=== PATIENT | male | born 1930 | race Two or more races ===

== ENCOUNTER 2017-08-20 13:29 | Day surgery (SDC) | payer MEDICARE ==
--- NOTE | 2017-08-17 10:41 | HP ---
CC: Dr. Blum at [facility] * ADMISSION HISTORY AND PHYSICAL: DATE OF ADMISSION: 08/20/17 ADMISSION DIAGNOSES: 1. Gross hematuria. 2. Bladder tumors. PLANNED PROCEDURE: Cystoscopy, transurethral resection of bladder tumor. SURGEON: Dr. Temple. HISTORY OF PRESENT ILLNESS: Boogie Arora is an 87-year-old gentleman whose past urologic history is significant for prostate cancer diagnosed about 8 to 9 years ago while he was in [place]. This was treated with an approximately 2- year course of Lupron injections and has not required any treatment in the last 5-6 years. His most recent serum PSA in July 2017 was 0.11. In December 2016, he had an episode of gross hematuria, which then recurred several weeks ago. He is not on any anticoagulants and did not have any flank pain or dysuria associated with this. 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 He is now being brought in for transurethral resection of these bladder lesions. PAST MEDICAL HISTORY: Significant for prostate cancer. PAST SURGICAL HISTORY: Negative. MEDICATIONS: On admission, none. ALLERGIES: No known drug allergies. SOCIAL HISTORY: He is a nonsmoker. REVIEW OF SYSTEMS: He is in exceptionally good health. There is no history of diabetes mellitus or any other major systemic illness. He is fairly active physically and looks about 15 years younger than his chronological age. PHYSICAL EXAMINATION GENERAL: Reveals a pleasant healthy-appearing gentleman. VITAL SIGNS: Blood pressure is 126/82, pulse 60 per minute regular, oxygen saturation 96% on room air. LUNGS: Clear bilaterally. CARDIOVASCULAR EXAM: Regular rate and rhythm, S1, S2. ABDOMEN: Soft without masses. IMPRESSION: An 87-year-old gentleman with episodes of gross hematuria and what appeared to be bladder tumor at the anterior bladder neck with some areas of active bleeding. PLAN/RECOMMENDATIONS: Cystoscopy and transurethral resection of bladder tumor. [id number]/[facility] #: [id number] [facility]
[~2017-08-20 13:29] MED LIST: Buffered Lidocaine 0.9% SYRIN* 5 ML/SYR SYRINGE INTRADERM ONE; Sodium Citrate/Citric Acid* 15 ML UDC PO ONE
[2017-08-20] MEDS ORDERED: cefTRIAXone(*) 2 GM ADDV.VIAL IVPB ONE (13:45)
[2017-08-20] MEDS ORDERED: Sodium Citrate/Citric Acid* 15 ML UDC ONE (13:45)
[2017-08-20] MEDS ORDERED: Buffered Lidocaine 0.9% SYRIN* 5 ML/SYR SYRINGE ONE (13:46)
[2017-08-20] MEDS ORDERED: Lidocaine 2% PF * 5 ML VIAL ONE (16:20)
[2017-08-20] MEDS ORDERED: Propofol* 10 MG/ML 20 ML BTL IV PUSH ONE (16:20)
[2017-08-20] MEDS ORDERED: fentaNYL* 50 MCG/ML 2 ML VIAL (100 MCG VIAL) ONE (16:41)
[2017-08-20] MEDS ORDERED: Furosemide IV* 10 MG/ML 2 ML VIAL (20 MG) ONE (17:06)
[2017-08-20] MEDS ORDERED: fentaNYL* 50 MCG/ML 2 ML VIAL (100 MCG VIAL) IV PRN (17:26)
[2017-08-20] MEDS ORDERED: Ondansetron INJ* 2 MG/ML VIAL IV PRN (17:26)
[2017-08-20] MEDS ORDERED: Naloxone* 0.4 MG/ML 1 ML VIAL IV PRN (17:26)
[2017-08-20] MEDS ORDERED: Lidocaine 2% JELLY* 6 ML JELLY TOPICAL ONE (18:09)
[2017-08-20] MEDS ORDERED: hydrALAZINE IV* 20 MG/ML VIAL ONE (18:58)
[2017-08-20] MEDS ORDERED: Labetalol IV* 5 MG/ML 20 ML VIAL ONE (19:28)
[2017-08-20 20:44] VITALS: BP 144/81
--- NOTE | 2017-08-21 11:07 | OP ---
CC: Dr. Blum at [facility] * DATE OF OPERATION: 08/20/17 - SDS DATE OF : [birth year] - Age: 87 years, male. SURGEON: Navdeep Temple MD. ANESTHESIOLOGIST: Dr. Sales. ANESTHESIA: General. PRE-OPERATIVE DIAGNOSES: 1. Gross hematuria. 2. Bladder tumor. POST-OPERATIVE DIAGNOSES: OPERATIVE PROCEDURES: Cystoscopy, transurethral resection and fulguration of bladder tumor (6 to 7 cm). COMPLICATIONS: None. ESTIMATED BLOOD LOSS: Less than 50 cc. OPERATIVE FINDINGS: Multiple tumors, anterior bladder neck, close to prostatic urethra (possible bladder versus prostatic origin), with active bleeding noted from some of the tumors. POSTOPERATIVE CONDITION: Stable. INDICATIONS: Boogie Arora is an 87-year-old gentleman who was evaluated for gross hematuria. He was noted to have the above described tumors, which are located in the anterior bladder neck and some of them are actively bleeding. 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 DESCRIPTION OF PROCEDURE: After induction of general anesthesia, the patient was placed in dorsal lithotomy position. Sequential compression devices were in place and functioning. Initial cystoscopy revealed normally located right and left ureteral orifices, with clear efflux noted. The bladder was carefully examined. There were few small diverticuli noted in the bladder. There were no tumors noted in the usual area where tumors would be expected, in the trigone or in the lateral castillo. In the anterior bladder neck area, there were multiple tumors noted, some of which appeared to be superficial transitional cell tumors, but some had a more solid appearance. Using the resectoscope the visible tumors were carefully resected; the area was quite vascular and the cautery was used to achieve hemostasis. Once the tumors had been satisfactorily resected, the resected tissue was removed from the bladder using the Velostack evacuator and sent for histopathology. At the end of the procedure hemostasis appeared satisfactory. A 24-Indonesian Tripathi was introduced without difficulty. The patient tolerated the procedure satisfactorily and was transferred back to the recovery area in stable condition. Depending on the histopathology report, the patient may require a second look procedure in a 3 to 4-week period. [id number]/[facility] #: [id number] [facility]
== END 2017-08-20 20:44 | disposition home or self-care (01) ==
LOC: OR 13:29
PROVIDERS: ATTEND Urology
DX: C67.5 Malignant neoplasm of bladder neck (principal); R31.0 Gross hematuria; Z85.46 Personal history of malignant neoplasm of prostate
CPT/HCPCS: 88305; A9270-GY; J0360; J0696; J1940; J2704; J3010

== ENCOUNTER 2017-12-07 08:09 | Day surgery (SDC) | payer MEDICARE ==
--- NOTE | 2017-12-04 04:07 | HP ---
CC: Dr. Chris Blum, [facility]; Dr. Temple * ADMITTING HISTORY AND PHYSICAL: DATE OF ADMISSION: 12/07/17 ADMITTING DIAGNOSES: 1. Gross hematuria. 2. Bladder cancer. PLANNED PROCEDURE: Cystoscopy, transurethral resection of recurrent bladder cancer. SURGEON: Dr. Temple. HISTORY OF PRESENT ILLNESS: Mr. Arora is an 87-year-old gentleman, who has undergone transurethral resection of bladder tumor for gross hematuria in July of 2017. Pathology had revealed high-grade invasive bladder cancer and he was not interested in pursuing chemotherapy or cystectomy. Recent cystoscopy in my office revealed recurrent bladder tumor in the anterior bladder wall with some areas of bleeding noted and he is now being brought in for management of the same. His past urologic history is significant for prostate cancer, which was treated initially with androgen deprivation therapy in the form of Lupron, which he has not required for several years. PAST MEDICAL HISTORY: Significant for: 1. Bladder cancer. 2. Prostate cancer. MEDICATIONS ON ADMISSION: None. ALLERGIES: No known drug allergies. SOCIAL HISTORY: Smoking history, he is a nonsmoker. REVIEW OF SYSTEMS: He is otherwise in very good health and is extremely physically active and denies any chest pain or shortness of breath. There is no history of any other major systemic illness. PHYSICAL EXAMINATION GENERAL: Reveals a pleasant healthy-appearing gentleman, who looks younger than his stated age. VITAL SIGNS: Blood pressure is 124/74; pulse 60 per minute, regular; oxygen saturation 97% on room air. LUNGS: Clear bilaterally. CARDIOVASCULAR: Regular rate and rhythm. S1, S2. ABDOMEN: Soft without masses. IMPRESSION: An 87-year-old gentleman with recurrent bladder cancer. PLAN: Planned procedure is cystoscopy, transurethral resection of bladder tumor. [id number]/[facility] #: [id number] [facility]
[~2017-12-07 08:09] MED LIST changes: +Dexamethasone IV* 4 MG/ML 1 ML (4 MG) IV SLOW PU ONE; +Famotidine IV* 10 MG/ML 2 ML (20 mg) IV ONE; -Sodium Citrate/Citric Acid* 15 ML UDC PO ONE
[2017-12-07] MEDS ORDERED: Famotidine IV* 10 MG/ML 2 ML (20 mg) ONE (08:51)
[2017-12-07] MEDS ORDERED: cefTRIAXone(*) 2 GM ADDV.VIAL IVPB ONE (08:51)
[2017-12-07] MEDS ORDERED: Dexamethasone IV* 4 MG/ML 1 ML (4 MG) ONE (08:51)
[2017-12-07] MEDS ORDERED: fentaNYL* 50 MCG/ML 2 ML VIAL (100 MCG VIAL) ONE (09:55)
[2017-12-07] MEDS ORDERED: Ondansetron INJ* 2 MG/ML VIAL ONE (09:56)
[2017-12-07] MEDS ORDERED: Propofol* 10 MG/ML 20 ML BTL IV PUSH ONE (09:56)
[2017-12-07] MEDS ORDERED: Lidocaine 2% PF * 5 ML VIAL ONE (09:56)
[2017-12-07] MEDS ORDERED: Furosemide IV* 10 MG/ML 2 ML VIAL (20 MG) ONE (10:24)
[2017-12-07] MEDS ORDERED: Naloxone* 0.4 MG/ML 1 ML VIAL IV PRN (11:12)
[2017-12-07] MEDS ORDERED: fentaNYL* 50 MCG/ML 2 ML VIAL (100 MCG VIAL) IV PRN (11:12)
[2017-12-07] MEDS ORDERED: Lidocaine 2% JELLY* 6 ML JELLY TOPICAL ONE (11:41)
[2017-12-07 11:51] VITALS: BP 149/88
--- NOTE | 2017-12-07 21:33 | OP ---
CC: Dr. Chris Blum * DATE OF OPERATION: 12/07/17 - [facility] DATE OF : [birth year] SURGEON: Navdeep Temple MD. ANESTHESIOLOGIST: Dr. Mcmanus. ANESTHESIA: General. PRE-OP DIAGNOSES: 1. Hematuria. 2. Bladder cancer. POST-OP DIAGNOSES: 1. Hematuria. 2. Bladder cancer. 3. Urethral and bladder neck stricture. OPERATIVE PROCEDURE: 1. Cystoscopy, transurethral resection and fulguration of bladder tumor (5 to 6 cm). 2. Transurethral incision of bladder neck. COMPLICATIONS: None. BLOOD LOSS: 50 cc. OPERATIVE FINDINGS: 1. Stricture of penile and bulbar urethra and stricture of the bladder neck. 2. Recurrent solid tumor anterior bladder neck (questionable primary bladder tumor versus related to prostate cancer). INDICATIONS: Boogie Arora is an 87-year-old gentleman, who had previously undergone transurethral resection of a bladder tumor several months ago. Pathology at that time had revealed invasive transitional cell carcinoma. He was recently reevaluated and noted to have recurrent tumor of the anterior bladder neck. DESCRIPTION OF PROCEDURE: After induction of general anesthesia, the patient was placed in dorsal lithotomy position. Sequential compression devices were in place and functioning. Initial cystoscopy revealed multiple strictures in the penile and bulbar urethra. These were carefully dilated. The bladder was examined. The right and left ureteral orifices were normal in position and configuration. There was recurrent tumor, which appeared solid noted at the anterior bladder neck extending from the 9 o'clock to the 3 o'clock position. Using the resectoscope, all of the visible tumor was carefully resected and sent for histopathology. It is possible that this may be a recurrence of bladder tumor, but because of the proximity to the prostate, the other possibility this may be related to his past history of prostate cancer. Next, using the Garcia knife, bladder neck incision was carried out of the 5 and 7 o'clock position. Once this was done, a 22-Khmer Tripathi was introduced without difficulty and connected to a drainage bag. The patient tolerated the procedure satisfactorily and was transferred back to recovery area in stable condition. [id number]/[facility] #: [id number] [facility]
== END 2017-12-07 12:00 | disposition home or self-care (01) ==
LOC: OR 08:09
PROVIDERS: ATTEND Urology
DX: C67.3 Malignant neoplasm of anterior wall of bladder (principal); R31.0 Gross hematuria; Z87.891 Personal history of nicotine dependence; Z85.46 Personal history of malignant neoplasm of prostate; N32.0 Bladder-neck obstruction
CPT/HCPCS: J0696; J1100; J1940; J2405; J2704; J3010

== ENCOUNTER 2018-09-02 06:50 | Day surgery (SDC) | payer MEDICARE ==
--- NOTE | 2018-08-23 22:06 | HP ---
CC: Dr. Blum, [facility] ADMITTING HISTORY AND PHYSICAL: DATE OF ADMISSION: 09/02/18 ADMITTING DIAGNOSES: 1. Urethral stricture. 2. History of prostate cancer and solid lesion bladder neck - prostate. 3. Hematuria. PLANNED PROCEDURES: Internal urethrotomy, cystoscopy, transurethral resection of bladder - prostate lesion. SURGEON: Dr. Temple. HISTORY OF PRESENT ILLNESS: Boogie Arora is an 88-year-old gentleman who had originally been evalua keyur about a year ago for gross hematuria and has undergone resection of what was initially described as invasive bladder cancer. He had then had a recurrent lesion in the bladder neck anteriorly and th is time the pathology was suggestive of a tumor of prostatic origin. His PSA continues to be almost undetectable and a bone scan had been obtained last year, which was also unremarkable. He was recent ly again was evaluated for difficulty voiding and was noted to have extensive strictures, which requi red urethral dilation in the office placement of a Tripathi catheter and he is now being brought in for further evaluation and management of possible recurrent lesion. PAST MEDICAL HISTORY: Significant for prostate cancer, for which he is currently not on any kind of therapy. MEDICATIONS ON ADMISSION: None. ALLERGIES: No known allergies. FAMILY HISTORY: Negative for prostate cancer. SOCIAL HISTORY: Smoking History: He is a nonsmoker. REVIEW OF SYSTEMS: He is in excellent health, he appears much younger than his chronological age and is very active physically. He denies any chest pain or shortness of breath. He has no history of d iabetes mellitus or any other major systemic illness. PHYSICAL EXAMINATION VITAL SIGNS: Blood pressure is 120/80, pulse 69 per minute, temperature 96.8, oxygen saturation 99% on room air. LUNGS: Clear bilaterally. CARDIOVASCULAR: Regular rate and rhythm. S1, S2. ABDOMEN: Soft without masses. A Tripathi catheter is in place draining clear urine. IMPRESSION: An 88-year-old gentleman with a history of recurrent lesion at the level of the bladder neck, which are likely of prostatic origin and in addition he has multiple strictures. PLAN: Planned procedure is internal urethrotomy, cystoscopy, transurethral resection of bladder - pr ostate lesion. [id number]/[facility] #: [id number]
[~2018-09-02 06:50] MED LIST changes: -Buffered Lidocaine 0.9% SYRIN* 5 ML/SYR SYRINGE INTRADERM ONE; +Buffered Lidocaine 1% SYRIN* 1 ML/SYRINGE INTRADERM ONE; -Dexamethasone IV* 4 MG/ML 1 ML (4 MG) IV SLOW PU ONE; -Famotidine IV* 10 MG/ML 2 ML (20 mg) IV ONE; +Lactated Ringers 1000 ML Bag* 1,000 ML IV SCH; +cefTRIAXone(*) 2 GM ADDV.VIAL IVPB ONE
[2018-09-02] MEDS ORDERED: Famotidine IV* 10 MG/ML 2 ML (20 mg) ONE (07:25)
[2018-09-02] MEDS ORDERED: fentaNYL* 50 MCG/ML 2 ML VIAL (100 MCG VIAL) ONE (08:02)
[2018-09-02] MEDS ORDERED: Midazolam* 1 MG/ML 2 ML VIAL (2 MG) ONE (08:02)
[2018-09-02] MEDS ORDERED: Lidocaine 2% PF * 5 ML VIAL ONE (08:49)
[2018-09-02] MEDS ORDERED: Propofol* 10 MG/ML 20 ML BTL ONE (08:52)
[2018-09-02] MEDS ORDERED: Ondansetron INJ* 2 MG/ML VIAL IV PRN (09:10)
[2018-09-02] MEDS ORDERED: PROCHLORPERAZINE INJ 5 MG/ML 2 ML VIAL IV PRN (09:10)
[2018-09-02] MEDS ORDERED: Acetaminophen TAB* 325 MG PO PRN (09:10)
[2018-09-02] MEDS ORDERED: HYDROcodone/ACETAMIN 5-325 MG* 1 TAB PO PRN (09:10)
[2018-09-02] MEDS ORDERED: fentaNYL* 50 MCG/ML 2 ML VIAL (100 MCG VIAL) IV PRN (09:10)
[2018-09-02] MEDS ORDERED: Naloxone* 0.4 MG/ML 1 ML VIAL IV PRN (09:10)
[2018-09-02] MEDS ORDERED: diPHENhydraMINE IV* 50 MG/ML 1 ml VIAL (BENADRYL) IV PRN (09:10)
[2018-09-02] MEDS ORDERED: DiMENhydriNATE IV* 50 MG/ML VIAL IV PUSH PRN (09:10)
[2018-09-02] MEDS ORDERED: EPHEDrine (Pressors)* 50 MG/ML VIAL ONE (09:12)
[2018-09-02] MEDS ORDERED: Furosemide IV* 10 MG/ML 2 ML VIAL (20 MG) ONE (09:28)
[2018-09-02] MEDS ORDERED: Lidocaine 2% JELLY* 6 ML JELLY TOPICAL ONE (10:42)
[2018-09-02 10:55] VITALS: BP 157/80
--- NOTE | 2018-09-02 12:50 | OP ---
CC: Dr. Chris Blum * DATE OF OPERATION: 09/02/18 - [facility] DATE OF : [birth year] SURGEON: Navdeep Temple MD ANESTHESIOLOGIST: Dr. Bassett. ANESTHESIA: General. PRE-OP DIAGNOSES: 1. Hematuria. 2. Urethral strictures. 3. Prostate cancer. POST-OP DIAGNOSES: 1. Hematuria. 2. Urethral strictures. 3. Prostate cancer. OPERATIVE PROCEDURE: 1. Internal urethrotomy. 2. Transurethral resection and fulguration of prostate lesion. 3. Transurethral incision of bladder neck. COMPLICATIONS: None. BLOOD LOSS: Less than 50 cc. CATHETER: 24-Syrian Tripathi. INDICATIONS: Boogie Arora is an 88-year-old gentleman who has had recurrent episodes of hematuria secondary to recurrent solid tumor at the junction of the anterior bladder neck and prostatic urethra. His PSA remains very low, so there is no indication for systemic therapy at the present time. OPERATIVE FINDINGS: 1. Strictures, penile and bulbar urethra and mild stricture at bladder neck. 2. Solid tumor, junction of anterior bladder neck and prostate (likely prostatic origin). POSTOPERATIVE CONDITION: Stable. DESCRIPTION OF PROCEDURE: After induction of general anesthesia, the patient was placed in dorsal lithotomy position. The patent had an indwelling Tripathi catheter, which had been removed prior to positioning and because of that the urethra was still fairly dilated. Using the urethral sounds, the distal urethra was carefully dilated to 30 Syrian. Next, using the internal urethrotome, the narrowing in the bulbar urethra was addressed with internal urethrotomy. The urethrotome was advanced further. There was still further narrowing at the bladder neck and using a resectoscope with a right-angled knife electrode, transurethral incision of the bladder neck was carried out using the 5, 7, and 12 o'clock positions. Next, the resectoscope was introduced into the bladder. The bladder had been previously entirely visualized with the cystoscope and there was no evidence of any lesions resembling bladder tumors. At the junction of the anterior bladder neck and prostate, there was recurrent solid tumor with a small area of bleeding. Using the resectoscope, all of the visible tumor from the site was carefully resected and then the base was carefully fulgurated with the coagulating loop. At the end of the procedure, there was no remaining visible solid tumor there and hemostasis appeared satisfactory. A 24-Syrian Tripathi was introduced without difficulty and connected to a drainage bag. The patient tolerated the procedure satisfactorily and was transferred back to the recovery area in stable condition. [id number]/[facility] #: [id number] [facility]
== END 2018-09-02 11:01 | disposition home or self-care (01) ==
LOC: OR 06:50
PROVIDERS: ATTEND Urology
DX: N35.919 Unspecified urethral stricture, male, unspecified site (principal); R31.9 Hematuria, unspecified; C61 Malignant neoplasm of prostate
CPT/HCPCS: 88307; 88341; 88342; J0696; J1940; J2250; J2704; J3010